=== PATIENT | female | born 1980 | race Caucasian/White ===

== ENCOUNTER 2017-03-07 18:56 | Emergency (ER) | payer OTHER ==
[~2017-03-07] VITALS: Ht 157.5 cm; Wt 109.6 kg
[~2017-03-07 18:56] MED LIST: BUPR8MIS PO; CARI250T PO
--- NOTE | 2017-03-07 19:13 | EMERGENCY ROOM VISIT NOTE ---
History First contact with patient: 18:59 Stated Complaint: FLANK PAIN History of Present Illness The patient is a 37 year old female who presents to the Emergency Room with complaints of severe left lower quadrant pain. She reports she has a history of kidney stones, and previously was told she had about 50 stones about 5 years ago. She reports she had stents placed, the stents then migrated. She reports due to the frequent kidney stones she became addicted to narcotics. She is now on Suboxone. She reports she noticed sharp L sided flank pain about 4 hours ago , which radiates down to the groin. She reports only a slight amount of hematuria when she wiped from peeing. In the past, she reports she used to have ric hematuria. She has not taken anything for her pain. She denies fevers at any point. She reports she only took half her usual dose of Suboxone today because she could barely keep anything down. She reports her pain is a 10/10 currently. She reports she used to take Advil regularly. She had surgery at some point and reports she was told after 800mg Ibuprofen her throat swelled up, so she now has that listed as an allergy. Review of Systems See HPI for pertinent positives & negatives. A total of 10 systems reviewed and were otherwise negative. Past Medical/Surgical History Medical Problems: (1) ASTHMA, UNSPECIFIED (2) CALCULUS OF URETER (3) DEPRESSIVE DISORDER NEC (4) Diabetes mellitus (5) FAM HX-CHR RESP COND NEC (6) FAM HX-DIABETES MELLITUS (7) FAM HX-ISCHEM HEART DIS (8) FAM HX-OTH KIDNEY DISEASES (9) FAMILY HISTORY OF OTHER CARDIOVASCULAR DISEASES (10) FAMILY HISTORY OF OTHER ENDOCRINE AND METABOLIC DISEASES (11) FAMILY HX-MALIGNANCY NOS (12) History of - pneumonia (13) History of - tubal ligation (14) History of bronchitis (15) Kidney stent placed (16) MIGRAINE UNSPECIFIED W/O INTRACTABLE MIGRAINE (17) OBESITY, NOS (18) OPIOID DEPENDENCE-UNSPEC (19) TOBACCO USE DISORDER (20) [place] Teeth Removal Family History Diabetes mellitus FH: cancer FH: gallbladder disease FH: heart disease FH: lung disease Hypertension Kidney disease Kidney stones Social History Smoking Status: Current Every Day Smoker Alcohol Use: none Drug Use: other Marital Status: Housing Status: lives with family Occupation Status: employed Current/Historical Medications Scheduled Amphetamine-Dextroamphetamine (Amphetamine/Dextroampheta), 1 TAB PO QAM Buprenorphine Hcl-Naloxone Hcl (Suboxone 8-2 Mg), 3 SQ DAILY Scheduled PRN Gabapentin (Neurontin), 800 MG PO QID PRN for Pain Allergies NKDA Physical Exam Vital Signs Date Time Temp Pulse Resp B/P (MAP) Pulse Ox O2 Delivery O2 Flow Rate FiO2 03/07/17 22:08 96 18 118/87 94 03/07/17 19:14 36.5 82 18 118/87 98 Room Air Physical Exam GENERAL: Awake, alert, well-appearing, in mild distress HENT: Normocephalic, atraumatic. Oropharynx unremarkable. EYES: Normal conjunctiva. Sclera non-icteric. NECK: Supple. No nuchal rigidity. FROM. No JVD. RESPIRATORY: Clear to auscultation. CARDIAC: Regular rate, normal rhythm. Extremities warm and well perfused. Pulses equal. ABDOMEN: Soft, non-distended. No tenderness to palpation. No rebound or guarding. No masses. RECTAL: Deferred. MUSCULOSKELETAL: Chest examination reveals no tenderness. The back is symmetrical on inspection without obvious abnormality. There is Left sided CVA tenderness to palpation. No joint edema. LOWER EXTREMITIES: Calves are equal size bilaterally and non-tender. No edema. No discoloration. NEURO: Normal sensorium. No sensory or motor deficits noted. SKIN: No rash or jaundice noted. Medical Decision & Procedures Laboratory Results 03/07/17 20:31 Red Blood Count 5.02, Mean Corpuscular Volume 86.7, Mean Corpuscular Hemoglobin 29.9, Mean Corpuscular Hemoglobin Concent 34.5, Mean Platelet Volume 10.6, Neutrophils (%) (Auto) 84.1, Lymphocytes (%) (Auto) 11.8, Monocytes (%) (Auto) 3.3, Eosinophils (%) (Auto) 0.2, Basophils (%) (Auto) 0.2, Neutrophils # (Auto) 9.43, Lymphocytes # (Auto) 1.32, Monocytes # (Auto) 0.37, Eosinophils # (Auto) 0.02, Basophils # (Auto) 0.02 03/07/17 20:31 Test 03/07/17 20:29 03/07/17 20:31 Urine Color YELLOW Urine Appearance CLEAR (CLEAR) Urine pH 6.0 (4.5-7.5) Urine Specific [place] 1.009 (1.000-1.030) Urine Protein NEG (NEG) Urine Glucose (UA) NEG (NEG) Urine Ketones NEG (NEG) Urine Occult Blood 3+ (NEG) Urine Nitrite NEG (NEG) Urine Bilirubin NEG (NEG) Urine Urobilinogen NEG (NEG) Urine Leukocyte Esterase NEG (NEG) Urine WBC (Auto) 1-5 /hpf (0-5) Urine RBC (Auto) 0-4 /hpf (0-4) Urine Hyaline Casts (Auto) 1-5 /lpf (0-5) Urine Epithelial Cells (Auto) 10-20 /lpf (0-5) Urine Bacteria (Auto) NEG (NEG) White Blood Count 11.21 K/uL (4.8-10.8) Red Blood Count 5.02 M/uL (4.2-5.4) Hemoglobin 15.0 g/dL (12.0-16.0) Hematocrit 43.5 % (37-47) Mean Corpuscular Volume 86.7 fL (80-100) Mean Corpuscular Hemoglobin 29.9 pg (25-34) Mean Corpuscular Hemoglobin Concent 34.5 g/dl (32-36) Platelet Count 116 K/uL (130-400) Mean Platelet Volume 10.6 fL (7.4-10.4) Neutrophils (%) (Auto) 84.1 % Lymphocytes (%) (Auto) 11.8 % Monocytes (%) (Auto) 3.3 % Eosinophils (%) (Auto) 0.2 % Basophils (%) (Auto) 0.2 % Neutrophils # (Auto) 9.43 K/uL (1.4-6.5) Lymphocytes # (Auto) 1.32 K/uL (1.2-3.4) Monocytes # (Auto) 0.37 K/uL (0.11-0.59) Eosinophils # (Auto) 0.02 K/uL (0-0.5) Basophils # (Auto) 0.02 K/uL (0-0.2) RDW Standard Deviation 41.4 fL (36.4-46.3) RDW Coefficient of Variation 13.0 % (11.5-14.5) Immature Granulocyte % (Auto) 0.4 % Immature Granulocyte # (Auto) 0.05 K/uL (0.00-0.02) Anion Gap 8.0 mmol/L (3-11) Est Creatinine Clear Calc Drug Dose 99.6 ml/min Estimated GFR () 93.5 Estimated GFR (Non- 80.7 BUN/Creatinine Ratio 14.2 (10-20) Calcium Level 9.2 mg/dl (8.5-10.1) Total Bilirubin 0.4 mg/dl (0.2-1) Aspartate Amino Transf (AST/SGOT) U/L (15-37) Alanine Aminotransferase (ALT/SGPT) 31 U/L (12-78) Alkaline Phosphatase 70 U/L (45-117) Total Protein 8.0 gm/dl (6.4-8.2) Albumin 3.6 gm/dl (3.4-5.0) Globulin 4.4 gm/dl (2.5-4.0) Albumin/Globulin Ratio 0.8 (0.9-2) Medications Administered Medications (Trade) Dose Ordered Sig/Tina Route Start Time Stop Time Status Last Admin Dose Admin Acetaminophen (Tylenol Tab) 650 mg NOW STAT PO 03/07/17 19:14 03/07/17 19:15 DC 03/07/17 19:14 650 MG ED Course 19:00: I saw the pateint in room B7. A complete history and physical examination were performed. 19:10: I ordered the patient PO Tylenol, and a CT of the abd/pelvis without contrast. 20:35: I checked on the patient. She felt ok. I offered her Morphine IV and she declined. 21:00: I checked on the patient again. She had passed the stone which was in her bladder when obtaining the urine specimen. Medical Decision 37 yo F with L flank pain - ddx includes renal colic, UTI, dehydration, musculoskeletal, or hernia related. She had an IV placed and IV fluids started. Labs were difficult to be obtained but eventually an iSTAT was obtained. A CT scan was ordered and showed 2 stones, one of which was in the bladder. She ended up passing the one in the bladder when she was providing a urine sample. She felt much better after this. Prior to this, she had declined pain medication. She declined Morphine. She was provided with a dose of PO Tylenol. She had a negative urinalysis. She was discharged home in good condition. Impression Primary Impression: Right flank pain Departure Information Dispostion Home / Self-Care Condition GOOD Referrals No Doctor, Assigned (PCP)
[2017-03-07 19:14] VITALS: TEMP 36.5; Ht 157.5 cm; Wt 109.6 kg
[2017-03-07] MEDS ORDERED: ACETAMINOPHEN 325 MG TAB PO STA (19:14)
--- NOTE | 2017-03-07 19:41 | DIAGNOSTIC IMAGING REPORT ---
CT SCAN OF THE ABDOMEN AND PELVIS WITHOUT CONTRAST CLINICAL HISTORY: Left flank pain COMPARISON STUDY: No previous studies for comparison. TECHNIQUE: CT scan of the abdomen and pelvis was performed from the lung bases to the proximal femurs. Images are reviewed in the axial, sagittal, and coronal planes. IV contrast was not administered for this examination. A dose lowering technique was utilized adhering to the principles of ALARA. CT DOSE: 1603.02 mGy.cm FINDINGS: Lower chest: The heart is normal in size and configuration, without pericardial effusion. The lung bases and pleural spaces are clear. Liver: The unenhanced liver is normal in size, contour, and attenuation. There is no intrahepatic biliary ductal dilatation. Gallbladder: Unremarkable. Spleen: Normal in size and attenuation. Pancreas: Unremarkable. Adrenal glands: Unremarkable. Kidneys: There is a 2.5 mm upper pole left renal calculus. There is mild left-sided hydronephrosis. There is left-sided perinephric stranding. There is a 2.5 mm calculus within the bladder. Bowel: There are no transition zone to indicate bowel obstruction. The appendix appears normal. There is no acute diverticulitis. Peritoneum: There is no intraperitoneal free air or abdominal ascites. Vasculature: The abdominal aorta is normal in course and caliber. Adenopathy: None. Pelvic viscera: The bladder, and pelvic viscera are unremarkable. Skeletal structures: No destructive osseous lesions are seen. IMPRESSION: 1. Left-sided nephrolithiasis 2. Mild left-sided hydronephrosis, hydroureter, and perinephric stranding. This is felt to be secondary to a 2.5 mm calculus which has recently passed into the bladder 3. No evidence of bowel obstruction. No evidence of free air 4. Normal appendix. No evidence of acute diverticulitis. Electronically signed by: Az Gauthier M.D. 03/07/2017 7:40 PM Dictated Date/Time: 03/07/2017 7:36 PM
[2017-03-07] MEDS ORDERED: GABA800T PO (19:54)
[2017-03-07] MEDS ORDERED: AMPH30TA PO (19:54)
[2017-03-07] MEDS ORDERED: BUPR1SUB23 SQ (19:54)
[2017-03-07 21:29] LABS: HEMATOCRIT 43.5 % (37-47); MEAN CELL VOLUME 86.7 fL (80-100); MEAN CORPUSCULAR HEMOGLOBIN 29.9 pg (25-34); MEAN CORPUSCULAR HGB CONC 34.5 g/dl (32-36); MEAN PLATELET VOLUME 10.6 fL (7.4-10.4); PLATELET COUNT 116 K/uL (130-400); RED BLOOD COUNT 5.02 M/uL (4.2-5.4); WHITE BLOOD COUNT 11.21 K/uL (4.8-10.8)
[2017-03-07 21:31] LABS: BASO % 0.2 %; BASO ABS # 0.02 K/uL (0-0.2); COMPLETE YES; EOS % 0.2 %; IG% 0.4 %; LYMPH % 11.8 %; LYMPH ABS # 1.32 K/uL (1.2-3.4); MONO % 3.3 %; NEUT % 84.1 %
[2017-03-07 21:37] LABS: ALB/GLOB RATIO 0.8 (0.9-2); ALKALINE PHOSPHATASE 70 U/L (45-117); ALT/SGPT 31 U/L (12-78); BLOOD UREA NITROGEN 13 mg/dl (7-18); BUN/CREATININE RATIO 14.2 (10-20); CALCIUM 9.2 mg/dl (8.5-10.1); CARBON DIOXIDE 22 mmol/L (21-32); CHLORIDE 111 mmol/L (98-107); CREATININE 0.92 mg/dl (0.60-1.20); GLUCOSE 93 mg/dl (70-99); SODIUM 141 mmol/L (136-145)
[2017-03-07 21:47] LABS: URINE APPEARANCE CLEAR (CLEAR); URINE BILIRUBIN NEG (NEG); URINE COLOR YELLOW; URINE NITRITE NEG (NEG); URINE SPECIFIC GRAVITY 1.009 (1.000-1.030); UROBILINOGEN NEG (NEG); ZZUR CULT IF INDIC CLEAN CATCH NO
[2017-03-07 21:49] LABS: MANUAL MICROSCOPIC REQUIRED? NO; REVIEW REQ? NO
[2017-03-07 22:08] VITALS: BP 118/87; PULSE 96; O2SAT 94
--- NOTE | 2017-03-07 23:49 | EMERGENCY ROOM VISIT NOTE ---
History Report prepared by [place]: Nannette Florian Under the Supervision of: Dr. Lavon Ruth DEunO. 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 She reports she has a history of kidney stones, and previously was told she had about 50 stones about 5 years ago. She reports she had stents placed, the stents then migrated. She reports due to the frequent kidney stones she became addicted to narcotics. She is now on Suboxone. She reports she noticed sharp L sided flank pain about 4 hours ago, which radiates down to the groin. She reports only a slight amount of hematuria when she wiped from urinating. She has not taken anything for her pain. She denies fevers at any point. She reports she only took half her usual dose of Suboxone today because she could barely keep anything down. She reports her pain is a 10/10 currently. Patient denies any chest pain, shortness breath , fevers, headache or dizziness. 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 A total of 10 systems reviewed and were otherwise negative. Past Medical & Surgical Medical Problems: (1) ASTHMA, UNSPECIFIED (2) CALCULUS OF URETER (3) DEPRESSIVE DISORDER NEC (4) Diabetes mellitus (5) FAM HX-CHR RESP COND NEC (6) FAM HX-DIABETES MELLITUS (7) FAM HX-ISCHEM HEART DIS (8) FAM HX-OTH KIDNEY DISEASES (9) FAMILY HISTORY OF OTHER CARDIOVASCULAR DISEASES (10) FAMILY HISTORY OF OTHER ENDOCRINE AND METABOLIC DISEASES (11) FAMILY HX-MALIGNANCY NOS (12) History of - pneumonia (13) History of - tubal ligation (14) History of bronchitis (15) Kidney stent placed (16) MIGRAINE UNSPECIFIED W/O INTRACTABLE MIGRAINE (17) OBESITY, NOS (18) OPIOID DEPENDENCE-UNSPEC (19) TOBACCO USE DISORDER (20) [place] Teeth Removal Family History Diabetes mellitus FH: cancer FH: gallbladder disease FH: heart disease FH: lung disease Hypertension Kidney disease Kidney stones Social History Smoking Status: Former Smoker Alcohol Use: none Drug Use: other Marital Status: Housing Status: lives with family Occupation Status: employed Current/Historical Medications Scheduled Amphetamine-Dextroamphetamine (Amphetamine/Dextroampheta), 1 TAB PO QAM Buprenorphine Hcl-Naloxone Hcl (Suboxone 8-2 Mg), 3 SQ DAILY Scheduled PRN Gabapentin (Neurontin), 800 MG PO QID PRN for Pain Allergies Coded Allergies: Erythromycin (Verified Allergy, Intermediate, HIVES, 11/11/12) Ibuprofen (Verified Allergy, Intermediate, SWELLING IN THROAT, 11/11/12) Macrolides (Verified Allergy, Intermediate, HIVES, 11/11/12) Phenyltoloxamine (Verified Allergy, Mild, HIVES, 11/11/12) Dextromethorphan (Verified Allergy, Unknown, 11/11/12) Spironolactone (Verified Allergy, Unknown, 11/11/12) Physical Exam Vital Signs Date Time Temp Pulse Resp B/P (MAP) Pulse Ox O2 Delivery O2 Flow Rate FiO2 03/07/17 22:08 96 18 118/87 94 03/07/17 19:14 36.5 82 18 118/87 98 Room Air Physical Exam GENERAL: Sitting up in bed, alert, well appearing, well nourished, no distress, non-toxic EYE EXAM: normal conjunctiva. OROPHARYNX: no exudate, no erythema, lips, buccal mucosa, and tongue normal and mucous membranes are moist NECK: supple, no nuchal rigidity, no adenopathy, non-tender LUNGS: Clear to auscultation. Normal chest wall mechanics HEART: no murmurs, S1 normal and S2 normal ABDOMEN: abdomen soft, non-tender, normo-active bowel sounds, no masses, no rebound or guarding. BACK: Back is symmetrical on inspection and there is no deformity, no midline tenderness, no CVA tenderness. SKIN: no rashes and no bruising UPPER EXTREMITIES: upper extremities are grossly normal. LOWER EXTREMITIES: No pitting edema. NEURO EXAM: Normal sensorium, cranial nerves II-XII grossly intact, normal speech, no gross weakness of arms, no gross weakness of legs. Medical Decision & Procedures ER Provider Diagnostic Interpretation: Radiology results as stated below per my review and the radiologist's interpretation: CT SCAN OF THE ABDOMEN AND PELVIS WITHOUT CONTRAST CLINICAL HISTORY: Left flank pain COMPARISON STUDY: No previous studies for comparison. TECHNIQUE: CT scan of the abdomen and pelvis was performed from the lung bases to the proximal femurs. Images are reviewed in the axial, sagittal, and coronal planes. IV contrast was not administered for this examination. A dose lowering technique was utilized adhering to the principles of ALARA. CT DOSE: 1603.02 mGy.cm FINDINGS: Lower chest: The heart is normal in size and configuration, without pericardial effusion. The lung bases and pleural spaces are clear. Liver: The unenhanced liver is normal in size, contour, and attenuation. There is no intrahepatic biliary ductal dilatation. Gallbladder: Unremarkable. Spleen: Normal in size and attenuation. Pancreas: Unremarkable. Adrenal glands: Unremarkable. Kidneys: There is a 2.5 mm upper pole left renal calculus. There is mild left-sided hydronephrosis. There is left-sided perinephric stranding. There is a 2.5 mm calculus within the bladder. Bowel: There are no transition zone to indicate bowel obstruction. The appendix appears normal. There is no acute diverticulitis. Peritoneum: There is no intraperitoneal free air or abdominal ascites. Vasculature: The abdominal aorta is normal in course and caliber. Adenopathy: None. Pelvic viscera: The bladder, and pelvic viscera are unremarkable. Skeletal structures: No destructive osseous lesions are seen. IMPRESSION: 1. Left-sided nephrolithiasis 2. Mild left-sided hydronephrosis, hydroureter, and perinephric stranding. This is felt to be secondary to a 2.5 mm calculus which has recently passed into the bladder 3. No evidence of bowel obstruction. No evidence of free air 4. Normal appendix. No evidence of acute diverticulitis. Electronically signed by: Az Gauthier M.D. 03/07/2017 7:40 PM Dictated Date/Time: 03/07/2017 7:36 PM Laboratory Results 03/07/17 20:31 Red Blood Count 5.02, Mean Corpuscular Volume 86.7, Mean Corpuscular Hemoglobin 29.9, Mean Corpuscular Hemoglobin Concent 34.5, Mean Platelet Volume 10.6, Neutrophils (%) (Auto) 84.1, Lymphocytes (%) (Auto) 11.8, Monocytes (%) (Auto) 3.3, Eosinophils (%) (Auto) 0.2, Basophils (%) (Auto) 0.2, Neutrophils # (Auto) 9.43, Lymphocytes # (Auto) 1.32, Monocytes # (Auto) 0.37, Eosinophils # (Auto) 0.02, Basophils # (Auto) 0.02 03/07/17 20:31 Test 03/07/17 20:29 03/07/17 20:31 03/07/17 21:00 Urine Color YELLOW Urine Appearance CLEAR (CLEAR) Urine pH 6.0 (4.5-7.5) Urine Specific [place] 1.009 (1.000-1.030) Urine Protein NEG (NEG) Urine Glucose (UA) NEG (NEG) Urine Ketones NEG (NEG) Urine Occult Blood 3+ (NEG) Urine Nitrite NEG (NEG) Urine Bilirubin NEG (NEG) Urine Urobilinogen NEG (NEG) Urine Leukocyte Esterase NEG (NEG) Urine WBC (Auto) 1-5 /hpf (0-5) Urine RBC (Auto) 0-4 /hpf (0-4) Urine Hyaline Casts (Auto) 1-5 /lpf (0-5) Urine Epithelial Cells (Auto) 10-20 /lpf (0-5) Urine Bacteria (Auto) NEG (NEG) White Blood Count 11.21 K/uL (4.8-10.8) Red Blood Count 5.02 M/uL (4.2-5.4) Hemoglobin 15.0 g/dL (12.0-16.0) Hematocrit 43.5 % (37-47) Mean Corpuscular Volume 86.7 fL (80-100) Mean Corpuscular Hemoglobin 29.9 pg (25-34) Mean Corpuscular Hemoglobin Concent 34.5 g/dl (32-36) Platelet Count 116 K/uL (130-400) Mean Platelet Volume 10.6 fL (7.4-10.4) Neutrophils (%) (Auto) 84.1 % Lymphocytes (%) (Auto) 11.8 % Monocytes (%) (Auto) 3.3 % Eosinophils (%) (Auto) 0.2 % Basophils (%) (Auto) 0.2 % Neutrophils # (Auto) 9.43 K/uL (1.4-6.5) Lymphocytes # (Auto) 1.32 K/uL (1.2-3.4) Monocytes # (Auto) 0.37 K/uL (0.11-0.59) Eosinophils # (Auto) 0.02 K/uL (0-0.5) Basophils # (Auto) 0.02 K/uL (0-0.2) RDW Standard Deviation 41.4 fL (36.4-46.3) RDW Coefficient of Variation 13.0 % (11.5-14.5) Immature Granulocyte % (Auto) 0.4 % Immature Granulocyte # (Auto) 0.05 K/uL (0.00-0.02) Anion Gap 8.0 mmol/L (3-11) Est Creatinine Clear Calc Drug Dose 99.6 ml/min Estimated GFR () 93.5 Estimated GFR (Non- 80.7 BUN/Creatinine Ratio 14.2 (10-20) Calcium Level 9.2 mg/dl (8.5-10.1) Total Bilirubin 0.4 mg/dl (0.2-1) Aspartate Amino Transf (AST/SGOT) U/L (15-37) Alanine Aminotransferase (ALT/SGPT) 31 U/L (12-78) Alkaline Phosphatase 70 U/L (45-117) Total Protein 8.0 gm/dl (6.4-8.2) Albumin 3.6 gm/dl (3.4-5.0) Globulin 4.4 gm/dl (2.5-4.0) Albumin/Globulin Ratio 0.8 (0.9-2) Laboratory results per my review. Medications Administered Medications (Trade) Dose Ordered Sig/Tina Route Start Time Stop Time Status Last Admin Dose Admin Acetaminophen (Tylenol Tab) 650 mg NOW STAT PO 03/07/17 19:14 03/07/17 19:15 DC 03/07/17 19:14 650 MG ED Course ED COURSE: Vital signs were reviewed and showed normal vitals. The patients medical record was reviewed The above diagnostic studies were performed and reviewed. ED treatments and interventions as stated above. 1858: The patient was evaluated in room B7. A complete history and physical examination was performed. 1913: Tylenol 650 mg PO 2005: I updated the patient on her radiology results. She is doing well. 2214: Upon reevaluation, the patient is feeling better and resting comfortably. I discussed my findings with the patient and she understands and agrees with the treatment plan. Based on the patients age, coexisting illnesses, exam and lab findings the decision to treat as an outpatient was made. The patient remained stable while under my care. The patient appeared well at the time of discharge. Medical Decision Differential diagnoses includes but is not limited to gastritis, peptic ulcer disease, GERD, gallbladder disease, pancreatitis, small bowel obstruction, acute coronary syndrome, pericarditis, ischemic bowel, irritable bowel disease, irritable bowel syndrome, appendicitis, diverticulitis, malignancy, hernia, urinary tract infection, torsion, /ectopic , perforation, trauma, infectious. Patient is a 37-year-old female who presents to ER for left flank pain. She notes this feels a previous kidney stones. She declined narcotics as she was addicted to them before in the past. CBC shows a mild leukocytosis. BMP all LFTs and bilirubin was unremarkable. UA shows no signs of infection. CT shows a stone in the bladder which she did urinate out. Patient was very significant better. Patient was updated bedside. She was seen independently my resident. She was discharged follow-up with PCP. Discussed with Pt concerning signs and symptoms to watch out for. Pt was instructed to follow up with their PCP and discussed with the patient their option to return to the ED at anytime for persistent or worsening symptoms. The appropriate anticipatory guidance and out- patient management, including indications for return to the emergency department , were explained at length to the patient and understood. Medication Reconcilliation Current Medication List: was personally reviewed by me Blood Pressure Screening Patient's blood pressure: Normal blood pressure Impression Primary Impression: Renal colic Additional Impression: Left flank pain Scribe Attestation The scribe's documentation has been prepared under my direction and personally reviewed by me in its entirety. I confirm that the note above accurately reflects all work, treatment, procedures, and medical decision making performed by me. Departure Information Dispostion Home / Self-Care Referrals No Doctor, Assigned (PCP) Forms HOME CARE DOCUMENTATION FORM, IMPORTANT VISIT INFORMATION Patient Instructions Kidney Stones - [facility], Kidney Stones Prevent, My [facility] Additional Instructions Follow up with your PCP to discuss kidney stones. We ordered stone analysis of the stone you passed, which may take a few weeks to get results from. Ask your PCP to check if they are able to. Regarding future stones, you can prevent these with drinking LOTS of water. Avoid caffeine. Take Tylenol if you do develop more pain. If you have fevers at any point when you feel like you are passing a stone, come to the ED immediately. If you feel short of breath, chest pain, are unable to pass urine, please return to the ED. Problem Qualifiers
== END 2017-03-07 22:09 | disposition home or self-care (01) ==
LOC: EDBD 18:56 → C.EDB 18:57
DX: N23 Unspecified renal colic (principal); Z87.442 Personal history of urinary calculi; J45.909 Unspecified asthma, uncomplicated; F32.9 Major depressive disorder, single episode, unspecified; E11.9 Type 2 diabetes mellitus without complications; Z87.01 Personal history of pneumonia (recurrent); G43.909 Migraine, unspecified, not intractable, without status migrainosus; E66.9 Obesity, unspecified; F11.20 Opioid dependence, uncomplicated; Z83.3 Family history of diabetes mellitus; Z80.9 Family history of malignant neoplasm, unspecified; Z83.79 Family history of other diseases of the digestive system; Z83.6 Family history of other diseases of the respiratory system; Z82.49 Family history of ischemic heart disease and other diseases of the circulatory system; Z84.1 Family history of disorders of kidney and ureter; Z87.891 Personal history of nicotine dependence